=== PATIENT | male | born 1955 | race Caucasian/White ===

== ENCOUNTER 2020-04-15 01:18 | Observation (INO) ==
[2020-04-15] MEDS ORDERED: SODIUM CHLORIDE 0.9% 1,000 ML IV STA (01:41)
[2020-04-15] MEDS ORDERED: MORPHINE 4 MG/1 ML VIAL IV STA (01:59)
[2020-04-15] MEDS ORDERED: ONDANSETRON 4 MG/2 ML VIAL IV ONE (01:59)
[2020-04-15 02:25] LABS: Albumin 4.5 G/DL (3.4-5.0); Bilirubin,Total 0.8 MG/DL (0.2-1.0); Calcium 9.6 MG/DL (8.5-10.1); Osmolality,Calculated 277.7 MOS/KG (273-304); Potassium 3.8 MMOL/L (3.5-5.1); Total Protein 8.1 G/DL (6.4-8.3)
[2020-04-15 02:27] LABS: Basophils % 0.4 % (0.0-0.8); Eosinophils # 0.1 10*3/uL (0.0-0.87); Eosinophils % 1.2 % (0.00-10.9); Hemoglobin 14.6 GM/DL (14.0-18.0); Immature Granulocytes % 0.2 %; Immature Granulocytes Absolute 0.02 #; Lymphocytes # 1.3 10*3/uL (1.4-4.0); Lymphocytes % 15.5 % (21.2-54.2); Mean Corpuscular Volume 89.2 FL (87-102); Mean Platelet Volume 9.1 FL (9.6-12.0); Monocytes % 5.2 % (1.7-12.7); Neutrophils % 77.5 % (38.7-73.9); Platelet Count 245 T/CUMM (130-400); Red Blood Count 4.82 MC/CUMM (3.8-5.5); Red Cell Distribution Width 12.6 % (9.3-17.3); White Blood Count 8.3 T/CUMM (4-12)
[2020-04-15 04:49] LABS: Bilirubin,Urine Negative (Negative); Blood, Urine Negative (Negative); Glucose,Urine (UA) Negative (Negative); Ketones,Urine 20 mg/dL (Negative); Mucus,Urine Occasional /LPF (Occasional); Nitrite,Urine Negative (Negative); Protein,Urine Negative; RBC,Urine 6 /HPF (0-4); Urine Appearance Slightly Hazy (Clear); Urine Color Yellow (Yellow); Urine Specific Gravity 1.045 (1.001-1.035); Urine Urobilinogen < 2.0 EU/DL (0.2-1.0)
[2020-04-15] MEDS: DEXTROSE 5% NACL 0.45% 1,000 ML IV SCH ×3 (05:54→23:05)
[2020-04-15] MEDS: PANTOPRAZOLE 40 MG VIAL IV SCH (08:17)
[2020-04-15] MEDS ORDERED: HYDROmorphone 2 MG/1 ML VIAL IV PRN (14:03)
[2020-04-15] MEDS: ONDANSETRON 4 MG/2 ML VIAL IV PRN ×2 (16:33→23:04)
[2020-04-15] MEDS ORDERED: ALPRAZolam 0.5 MG TABLET PO ONE (19:18)
[2020-04-16] MEDS: DEXTROSE 5% NACL 0.45% 1,000 ML IV SCH (05:45)
[2020-04-16] MEDS: PANTOPRAZOLE 40 MG VIAL IV SCH (09:13)
[2020-04-16 14:39] VITALS: BP 139/67
== END 2020-04-16 13:55 | disposition home or self-care (01) ==
LOC: N.ED 01:18 → N.EDINP 01:18 → N.3E 05:23
PROVIDERS: ADMIT Student in an Organized Health Care Education/Training Program; ATTEND Student in an Organized Health Care Education/Training Program